=== PATIENT | female | born 1950 | race Caucasian/White ===

== ENCOUNTER → 2023-11-24 07:40 | Outpatient (REF) | payer OTHER, SELFPAY | LOC: WDC 07:40 | PROVIDERS: ATTENDING PHYSICIAN Family Medicine | DX: Z12.31 Encounter for screening mammogram for malignant neoplasm of breast (principal) | CPT/HCPCS: 77063; 77067 ==

== ENCOUNTER → 2024-11-29 08:27 | Outpatient (REF) | payer OTHER, SELFPAY | LOC: WDC 08:27 | PROVIDERS: ATTENDING PHYSICIAN Family Medicine | DX: M85.80 Other specified disorders of bone density and structure, unspecified site (principal); Z12.31 Encounter for screening mammogram for malignant neoplasm of breast | CPT/HCPCS: 77063; 77067; 77080 ==